=== PATIENT | female | born 1970 ===

== ENCOUNTER 2017-04-25 15:30 | Observation (INO) | payer SELFPAY ==
[2017-04-25 17:02] LABS: BASO # 0.1 K/uL (0.0-0.2); BASO % 0.5 % (0.0-2.0); EOS # 0.3 K/uL (0.0-0.7); EOS % 2.9 % (0.0-4.0); HEMATOCRIT 43.6 % (34.0-47.0); LYMPH # 3.6 K/uL (1.0-4.3); LYMPH % 32.7 % (20.0-40.0); MEAN CELL VOLUME 86.8 fl (81.0-99.0); MEAN CORPUSCULAR HEMOGLOBIN 28.3 pg (27.0-31.0); MEAN CORPUSCULAR HGB CONC 32.6 g/dL (33.0-37.0); MEAN PLATELET VOLUME 10.1 fl (7.2-11.7); MONO # 0.6 K/uL (0.0-0.8); MONO % 5.2 % (0.0-10.0); NEUT # 6.5 K/uL (1.8-7.0); NEUT % 58.7 % (50.0-75.0); NRBC % 0.1 % (0.0-0.0); RED CELL DISTRIBUTION WIDTH 13.7 % (11.5-14.5); WHITE BLOOD COUNT 11.1 K/uL (4.8-10.8)
[2017-04-25 17:14] LABS: ALB/GLOB RATIO 1.1 (1.0-2.1); ALKALINE PHOSPHATASE 88 U/L (38-126); ALT/SGPT 26 U/L (9-52); AST/SGOT 43 U/L (14-36); BILIRUBIN,TOTAL 0.8 mg/dl (0.2-1.3); BLOOD UREA NITROGEN 8 mg/dl (7-17); CALCIUM 9.4 mg/dL (8.4-10.2); CARBON DIOXIDE 24 mmol/L (22-30); CHLORIDE 100 mmol/L (98-107); GFR AFRICAN-AMERICAN > 60; GLUCOSE,RANDOM 217 mg/dL (65-105); POTASSIUM 4.3 MMOL/L (3.6-5.0); SODIUM 137 mmol/l (132-148); TOTAL PROTEIN 8.6 G/DL (6.3-8.2)
--- NOTE | 2017-04-25 17:24 | ED PDOC ---
HPI: SOB/CHF/COPD Time Seen by Provider: 04/25/17 16:00 Chief Complaint (Nursing): Shortness Of Breath Chief Complaint (Provider): Shortness of Breath History Per: Patient History/Exam Limitations: no limitations Onset/Duration Of Symptoms: Days (5) Exacerbating Factor(s): Exertion, Laying Flat Current Respiratory Medications: See Home Med List Severity: Severe Associated Symptoms: Other (persistent non-productive cough and dyspnea) Additional Complaint(s): 46 y.o. female with PMHx of Type II Diabetes Mellitus, HTN, Hyperlipidemia presents to emergency room with complaints of shortness of breath. Pt. reports starting approximately 5 days ago started experiencing a non-productive cough and then starting Monday developed shortness of breath. Pt. reports has not felt short of breath prior to this episode and non-productive cough as not improved. Pt. reports was with her PMD and was sent from the E.D. via ambulance to the E.D. for evaluation of shortness of breath. Further more patient reports her breathing improves when sitting upright and feels more short of breath when lying supine. Pt. also reports fatigue and generalized weakness. On ROS, pt. denies any fever, chills, nasal congestion, recent travel, hemoptysis, hematemesis, abdominal pain, joint pain, dysuria, hematuria, or limb pain. Past Medical History Vital Signs: Last Vital Signs Temp 98.3 F 04/25/17 15:33 Pulse 100 H 04/25/17 15:33 Resp 16 04/25/17 16:20 BP 144/79 04/25/17 15:33 Pulse Ox 100 04/25/17 19:16 - Medical History PMH: Diabetes, GERD, Hypercholesterolemia, Hyperlipidemia - Family History Family History: States: Unknown Family Hx - Social History Current smoker - smoking cessation education provided: No Ex-Smoker (has not smoked in the last 12 months): No Alcohol: None Drugs: Denies - Home Medications Home Medications: Ambulatory Orders Medication Instructions Recorded Naproxen [Naprosyn] 500 mg PO BID PRN #15 tablet 05/09/16 - Allergies Allergies/Adverse Reactions: Allergies Allergy/AdvReac Type Severity Reaction Status Date / Time No Known Allergies Allergy Verified 05/09/16 10:21 Curb-65 Severity Score - CURB-65 Severity Score Confusion: No Bun >19mg/dl (>7mmol/L): No Respiratory Rate greater than/equal to 30: No Systolic BP <90 or Diastolic BP less than/equal 60mmHg: No Age >64: No Curb-65 Score: 0 Percentage 30-day mortality: 0.6% Wells Criteria for PE - Wells Criteria for Pulmonary Embolism Clinical Signs and Symptoms of DVT: No P.E is #1 Diagnosis, or Equally Likely: No Heart Rate >100: Yes Immobilization at least 3 days;Surgery previous 4 weeks: No Previous, objectively diagnosed PE or DVT: No Hemoptysis: No Malignancy w/treatment within 6 months, or palliative: No Total Score: 1.5 Review of Systems Respiratory: Positive for: Cough (See HPI), Shortness of Breath Physical Exam - Reviewed Vital Signs Reviewed: Yes - Physical Exam Appears: Positive for: Non-toxic, No Acute Distress Eye Exam: Positive for: Normal appearance. Negative for: Scleral icterus ENT: Positive for: Pharynx Is (+Posterior nasal drip ) Neck: Positive for: Painless ROM Respiratory: Positive for: Rhonchi (Scattered rhonchi appreciated greater on right than left). Negative for: Wheezing Gastrointestinal/Abdominal: Positive for: Soft. Negative for: Tenderness Extremity: Positive for: Other (Trace pitting edema) Neurologic/Psych: Positive for: Alert, Oriented - Laboratory Results Result Diagrams: 04/25/17 16:48 04/25/17 16:48 - ECG O2 Sat by Pulse Oximetry: 100 - Radiology X-Ray: Read By Radiologist X-Ray Interpretation: No Acute Disease - Progress ED Course And Treament: CBC, CMP, Troponin, D-dimer, UA CXR Oxygen 2L NC EKG Re-evaluation Time: 19:15 Condition: Improving,but remains with symptoms Medical Decision Making Medical Decision Makin y.o. female with HTN, HLD, Diabetes Mellitus sent from clinic with new onset cough and shortness of breath seen in the emergency room with new onset dyspnea still with symptoms while in the E.D. with an elevated D. Dimer of .71. for CT angio PE protocol. Disposition - Clinical Impression Clinical Impression: Dyspnea - Patient ED Disposition Is Patient to be Admitted: Yes Discussed With : Peg Lee - Disposition Disposition Time: 19:20 Condition: GUARDED
--- NOTE | 2017-04-25 17:37 | RAD ---
HISTORY: dyspnea COMPARISON: No prior. FINDINGS: LUNGS: No active pulmonary disease. PLEURA: No significant pleural effusion identified, no pneumothorax apparent. CARDIOVASCULAR: No radiographic findings to suggest acute or significant cardiovascular disease. OSSEOUS STRUCTURES: No significant abnormalities. VISUALIZED UPPER ABDOMEN: Normal. OTHER FINDINGS: None. IMPRESSION: No active disease.
[2017-04-25 19:06] LABS: PARTIAL THROMBOPLASTIN TIME 24.4 Seconds (25.6-37.1)
[2017-04-25 19:08] LABS: RBC URINE 4 /hpf (0-3); URINE BILIRUBIN NEGATIVE (NEGATIVE); URINE BLOOD NEGATIVE (NEGATIVE); URINE COLOR YELLOW (YELLOW); URINE GLUCOSE (UA) 150 mg/dL (Normal); URINE KETONE TRACE mg/dL (NEGATIVE); URINE LEUKOCYTE ESTERASE NEG Leu/uL (Negative); URINE PROTEIN 100 mg/dL (NEGATIVE); URINE UROBILINOGEN 0.2-1.0 mg/dL (0.2-1.0); WBC URINE 1 /hpf (0-5)
[2017-04-25] MEDS ORDERED: Iodixanol 320 MG/ML 100 ML BOTTLE IV ONE (19:20)
[2017-04-25] MEDS ORDERED: Sodium Chloride 0.9% 50 ML IV ONE (19:20)
--- NOTE | 2017-04-25 20:57 | CP.PCM.HP ---
History of Present Illness - History of Present Illness History of Present Illness: CC: Dyspnea on walking that is "new" 46F referred from [facility] for new onset dyspnea since Monday on exertion after development of dry cough on Saturday 04/21. Patient denies asthma history and has never smoked. Cough started Monday, worse at night, house member with similar symptoms, and smoking by a house member. Of note, patient reports baseline fatigue and needing rest frequently throughout the day. -ve: fevers, chills, sore throat, ear pain, SOB at rest, chest pain, palpitations, peripheral swelling, orthopnea, recent travel, weight loss, loss of appetite In addition, patient is experiencing significant reflux symptoms with burning into her throat, especially at night and reports associated bad taste in her mouth in the morning. She states she intermittently takes ant-acids. She reports burning and frequency with urination. LMP: 03/28/2017 PMH: DM, HLD, GERD PSH: None Smoke: Never, but lives with smoker Alcohol: Socially Drugs: Denies ALL: Eggs NIA: See Med Rec ED COURSE VSS: 36.8- 100- 144/79- 22- 100% CBC: 11.1H>14.2/43.6<326, otherwise nml Influenza: Neg Rapid Strep: Neg Throat Culture: PEND CMP: AST- 43H, otherwise WNL EKG: SR, HR-95, no ST-T changes Troponin#1: Negative D-dimer: 0.7H CXR: no active disease CTA Chest: no PE, dissection Aspirin 325mg x1 Present on Admission - Present on Admission Any Indicators Present on Admission: Yes History of Uncontrolled Diabetes: Yes Review of Systems - Review of Systems All systems: reviewed and no additional remarkable complaints except - Respiratory Respiratory: Cough, Dyspnea on Exertion Past Patient History - Past Social History Alcohol: None Drugs: Denies - CARDIAC Hx Hypercholesterolemia: Yes - ENDOCRINE/METABOLIC Hx Diabetes Mellitus Type 2: Yes - PSYCHIATRIC Hx Substance Use: No - ANESTHESIA Hx Anesthesia: No Meds Allergies/Adverse Reactions: Allergies Allergy/AdvReac Type Severity Reaction Status Date / Time No Known Allergies Allergy Verified 05/09/16 10:21 Physical Exam - Constitutional Appears: Well, Non-toxic, No Acute Distress - Head Exam Head Exam: ATRAUMATIC, NORMAL INSPECTION - Eye Exam Eye Exam: EOMI, Normal appearance - ENT Exam ENT Exam: Mucous Membranes Moist, Normal Exam - Neck Exam Neck exam: Positive for: Full Rom, Normal Inspection. Negative for: Lymphadenopathy - Respiratory Exam Respiratory Exam: Clear to Auscultation Bilateral, NORMAL BREATHING PATTERN. absent: Rales, Wheezes - Cardiovascular Exam Cardiovascular Exam: REGULAR RHYTHM. absent: JVD - GI/Abdominal Exam GI & Abdominal Exam: Normal Bowel Sounds, Soft. absent: Tenderness - Extremities Exam Extremities exam: Positive for: normal capillary refill, pedal pulses present. Negative for: normal inspection (b/l varicosty w/o cords or phlebitis), pedal edema - Back Exam Back exam: absent: CVA tenderness (L), CVA tenderness (R) - Neurological Exam Neurological exam: Alert, Oriented x3 - Psychiatric Exam Psychiatric exam: Normal Affect, Normal Mood - Skin Skin Exam: Normal Color, Warm Results - Vital Signs Recent Vital Signs: Last Vital Signs Temp 36.8 C 04/25/17 15:33 Pulse 114 H 04/25/17 20:26 Resp 18 04/25/17 20:26 BP 126/78 04/25/17 20:26 Pulse Ox 98 04/25/17 20:26 - Labs Result Diagrams: 04/25/17 16:48 04/25/17 16:48 Assessment & Plan (1) Dyspnea Assessment and Plan: Likely secondary to a viral URI with + sick contact combined with poorly controlled moderate GERD, and body habitus. Clinically no evidence for HF, Asthma, COPD. Although d-dimer mildly elevated, CTA chest negative for acute pathology and likely non-specific. Ddx viral URI vs. uncontrolled GERD. - Throat Cx: PEND - Complete Troponin series - Protonix 40mg, PO, Daily - Encourage lifestyle changes for GERD Status: Acute (2) DVT prophylaxis Assessment and Plan: Lovenox 40mg, SC, HS Status: Acute (3) Diabetes Assessment and Plan: Chronic, not well-controlled. Patient taking medication on her own schedule and instructed to take medication as prescribed for maximal effect. A1C- 12.6 () - Resume Metformin, Glipizide, Atorvastatin - SSI, moderate ACTID - Levemir 10U, SC, HS (TDD: 20.4 0.3*68kg) - Accu-check ACHS - Hypoglycemic Bindle - Mod CHO diet Status: Chronic (4) Chronic GERD Assessment and Plan: Patient with significant symptoms and inconsistent medication schedule. - Started on Protonix 40mg, PO, Daily Status: Chronic
[2017-04-25] MEDS ORDERED: Glucagon Recombinant 1 mg Inj IM PRN (21:03)
[2017-04-25] MEDS ORDERED: Dextrose 50% SYRINGE Inj (50 ml) IV PRN (21:03)
--- NOTE | 2017-04-25 21:03 | CT ---
EXAM: CT Angiography Chest With Intravenous Contrast CLINICAL HISTORY: 46 years old, female; Signs and symptoms; Shortness of breath; Additional info: New onset dyspnea on exertion TECHNIQUE: Axial computed tomographic angiography images of the chest with intravenous contrast using pulmonary embolism protocol. This CT exam was performed using one or more of the following dose reduction techniques: automated exposure control, adjustment of the mA and/or kV according to patient size, and/or use of iterative reconstruction technique. MIP reconstructed images were created and reviewed. Coronal and sagittal reformatted images were created and reviewed. CONTRAST: 80 mL of [id number] administered intravenously. COMPARISON: No relevant prior studies available. FINDINGS: Pulmonary arteries: No pulmonary embolism. Aorta: No aneurysm. No dissection. Lungs: Mild underinflation. Mild mosaic pattern of lung parenchyma, nonspecific but likely air trapping. Minimal atelectasis/scarring. No consolidation. Few pulmonary nodules, up to 0.3 cm. Pleural space: No significant effusion. No pneumothorax. Heart: No cardiomegaly. No significant pericardial effusion. Bones/joints: No acute fracture. No dislocation. Soft tissues: Unremarkable. Lymph nodes: No pathologically enlarged lymph nodes. Liver: Probable fatty infiltration. IMPRESSION: 1. No CT evidence of pulmonary embolism. 2. Pulmonary nodules. For low-risk patients, no follow-up is necessary. For high-risk patients (smoking history or other known risk factors) recommend CT at 12 months and if unchanged, no further follow-up. 3. Incidental/non-acute findings are described above.
[2017-04-25] MEDS ORDERED: Enoxaparin 40 mg Syringe SC SCH (22:00)
[2017-04-25] MEDS ORDERED: Insulin Detemir 100 Units/ml Inj SC SCH (22:00)
[2017-04-26 05:26] LABS: BASO % 0.3 % (0.0-2.0); EOS # 0.4 K/uL (0.0-0.7); EOS % 3.8 % (0.0-4.0); HEMATOCRIT 42.9 % (34.0-47.0); LYMPH # 4.7 K/uL (1.0-4.3); LYMPH % 42.3 % (20.0-40.0); MEAN CELL VOLUME 86.2 fl (81.0-99.0); MEAN CORPUSCULAR HEMOGLOBIN 28.4 pg (27.0-31.0); MEAN CORPUSCULAR HGB CONC 32.9 g/dL (33.0-37.0); MEAN PLATELET VOLUME 9.6 fl (7.2-11.7); MONO # 0.7 K/uL (0.0-0.8); MONO % 6.1 % (0.0-10.0); NEUT # 5.2 K/uL (1.8-7.0); NEUT % 47.5 % (50.0-75.0); NRBC % 0.1 % (0.0-0.0); RED CELL DISTRIBUTION WIDTH 13.8 % (11.5-14.5)
[2017-04-26 05:32] LABS: BLOOD UREA NITROGEN 11 mg/dl (7-17); CALCIUM 9.7 mg/dL (8.4-10.2); CARBON DIOXIDE 26 mmol/L (22-30); CHLORIDE 100 mmol/L (98-107); GFR AFRICAN-AMERICAN > 60; GLUCOSE,RANDOM 243 mg/dL (65-105); SODIUM 139 mmol/l (132-148)
[2017-04-26] MEDS ORDERED: Insulin Lispro (humaLOG) 100 Units/ml Inj SC SCH (07:30)
--- NOTE | 2017-04-26 08:51 | CARD ---
APPROVED REPORT EKG Measurement Heart [id number] MS [id number] <Conclusion> Normal sinus rhythm Inferior infarct, age undetermined Abnormal ECG
[2017-04-26] MEDS ORDERED: GlipiZIDE 10 mg SR Tab PO SCH (09:00)
[2017-04-26] MEDS ORDERED: Enoxaparin 40 mg Syringe SC SCH (09:00)
[2017-04-26] MEDS ORDERED: Pantoprazole 40 mg EC Tab PO SCH (09:00)
[2017-04-26 12:42] VITALS: BP 100/61; PULSE 87; RESP 18; TEMP 97.7; O2SAT 97
--- NOTE | 2017-04-26 14:40 | CP.PCM.DIS ---
Provider - Provider Date of Admission: 04/25/17 19:24 Attending physician: Johanne Ansari MD Time Spent in preparation of Discharge (in minutes): 35 Hospital Course - Lab Results Lab Results: Most Recent Lab Values WBC 11.0 K/uL (4.8-10.8) H 04/26/17 04:10 RBC 4.97 Mil/uL (3.80-5.20) 04/26/17 04:10 Hgb 14.1 g/dL (12.0-16.0) 04/26/17 04:10 Hct 42.9 % (34.0-47.0) 04/26/17 04:10 MCV 86.2 fl (81.0-99.0) 04/26/17 04:10 MCH 28.4 pg (27.0-31.0) 04/26/17 04:10 MCHC 32.9 g/dL (33.0-37.0) L 04/26/17 04:10 RDW 13.8 % (11.5-14.5) 04/26/17 04:10 Plt Count 316 K/uL (130-400) 04/26/17 04:10 MPV 9.6 fl (7.2-11.7) 04/26/17 04:10 Neut % (Auto) 47.5 % (50.0-75.0) L 04/26/17 04:10 Lymph % (Auto) 42.3 % (20.0-40.0) H 04/26/17 04:10 [place] % (Auto) 6.1 % (0.0-10.0) 04/26/17 04:10 Eos % (Auto) 3.8 % (0.0-4.0) 04/26/17 04:10 Baso % (Auto) 0.3 % (0.0-2.0) 04/26/17 04:10 Neut # 5.2 K/uL (1.8-7.0) 04/26/17 04:10 Lymph # 4.7 K/uL (1.0-4.3) H 04/26/17 04:10 [place] # 0.7 K/uL (0.0-0.8) 04/26/17 04:10 Eos # 0.4 K/uL (0.0-0.7) 04/26/17 04:10 Baso # 0.0 K/uL (0.0-0.2) 04/26/17 04:10 PT 10.7 Seconds (9.8-13.1) 04/25/17 18:00 INR 1.0 (0.9-1.2) 04/25/17 18:00 APTT 24.4 Seconds (25.6-37.1) L 04/25/17 18:00 D-Dimer, Quantitative 0.71 mg/L FEU (0-0.50) H 04/25/17 18:00 Sodium 139 mmol/l (132-148) 04/26/17 04:10 Potassium 4.0 MMOL/L (3.6-5.0) 04/26/17 04:10 Chloride 100 mmol/L (98-107) 04/26/17 04:10 Carbon Dioxide 26 mmol/L (22-30) 04/26/17 04:10 Anion Gap 16 (10-20) 04/26/17 04:10 BUN 11 mg/dl (7-17) 04/26/17 04:10 Creatinine 0.5 mg/dL (0.7-1.2) L 04/26/17 04:10 Est GFR ( Amer) > 60 04/26/17 04:10 Est GFR (Non-Af Amer) > 60 04/26/17 04:10 POC Glucose (mg/dL) 243 mg/dL (65-110) H 04/26/17 11:59 Random Glucose 243 mg/dL (65-105) H 04/26/17 04:10 Calcium 9.7 mg/dL (8.4-10.2) 04/26/17 04:10 Total Bilirubin 0.8 mg/dl (0.2-1.3) 04/25/17 16:48 AST 43 U/L (14-36) H D 04/25/17 16:48 ALT 26 U/L (9-52) 04/25/17 16:48 Alkaline Phosphatase 88 U/L (38-126) 04/25/17 16:48 Troponin I 0.0160 ng/mL (0.00-0.120) 04/26/17 09:34 NT-Pro-B Natriuret Pep 52.9 pg/ml (0-450) 04/25/17 16:48 Total Protein 8.6 G/DL (6.3-8.2) H 04/25/17 16:48 Albumin 4.5 g/dL (3.5-5.0) 04/25/17 16:48 Globulin 4.2 gm/dL (2.2-3.9) H 04/25/17 16:48 Albumin/Globulin Ratio 1.1 (1.0-2.1) 04/25/17 16:48 Urine Color Yellow (YELLOW) 04/25/17 18:39 Urine Clarity Clear (Clear) 04/25/17 18:39 Urine pH 5.0 (5.0-8.0) 04/25/17 18:39 Ur Specific [place] 1.032 (1.003-1.030) H 04/25/17 18:39 Urine Protein 100 mg/dL (NEGATIVE) 04/25/17 18:39 Urine Glucose (UA) 150 mg/dL (Normal) 04/25/17 18:39 Urine Ketones Trace mg/dL (NEGATIVE) 04/25/17 18:39 Urine Blood Negative (NEGATIVE) 04/25/17 18:39 Urine Nitrate Negative (NEGATIVE) 04/25/17 18:39 Urine Bilirubin Negative (NEGATIVE) 04/25/17 18:39 Urine Urobilinogen 0.2-1.0 mg/dL (0.2-1.0) 04/25/17 18:39 Ur Leukocyte Esterase Neg Elliot/uL (Negative) 04/25/17 18:39 Urine RBC (Auto) 4 /hpf (0-3) H 04/25/17 18:39 Urine Microscopic WBC 1 /hpf (0-5) 04/25/17 18:39 Ur Squamous Epith Cells 5 /hpf (0-5) 04/25/17 18:39 Influenza Typ A,B (EIA) Negative for flu a/b (NEGATIVE) 04/25/17 18:20 Grp A Beta Strep Ag Negative (NEGATIVE) 04/25/17 18:20 - Hospital Course Hospital Course: 46 year old female with uncontrolled DM presented to [facility] [place] with complaints of dyspnea on exertion, admitted for observation to rule out PE and acute [place]. EKG: NSR, inferior infarct, age undetermined. Troponins negative x 2. Patient had CTA Chest : no evidence of PE or dissection. Patient has symptoms of GERD. Will treat with omeprazole 20mg daily. She Will follow up at [facility] on May 04, 2017 at 15:[address] Gutiérrez. Patient to get echo and is stable for discharge s/p echo. - Date & Time of H&P Date of H&P: 04/25/17 Time of H&P: 20:57 Discharge Exam - Head Exam Head Exam: ATRAUMATIC, NORMAL INSPECTION - Eye Exam Eye Exam: Normal appearance - ENT Exam ENT Exam: Mucous Membranes Moist - Respiratory Exam Respiratory Exam: Clear to PA & Lateral, NORMAL BREATHING PATTERN, UNREMARKABLE - Cardiovascular Exam Cardiovascular Exam: REGULAR RHYTHM, +S1, +S2 - GI/Abdominal Exam GI & Abdominal Exam: Normal Bowel Sounds, Soft. absent: Tenderness - Extremities Exam Additional comments: no pedal edema - Neurological Exam Neurological exam: Alert, CN II-XII Intact - Psychiatric Exam Psychiatric exam: Normal Affect, Normal Mood - Skin Skin Exam: Dry, Intact, Normal Color Discharge Plan - Discharge Medications Prescriptions: Omeprazole 20 mg PO DAILY #30 tablet. - Follow Up Plan Condition: GUARDED Disposition: HOME/ ROUTINE
--- NOTE | 2017-04-28 09:27 | CARD ---
APPROVED REPORT EKG Measurement Heart [id number] MS 150P47 [id number] <Conclusion> Normal sinus rhythm Possible Inferior infarct, age undetermined Cannot rule out Anterior infarct, age undetermined Abnormal ECG
--- NOTE | 2017-04-28 10:55 | CARD ---
APPROVED REPORT EXAM: Two-dimensional and M-mode echocardiogram with Doppler and color Doppler. Other Information Quality : FairRhythm : INDICATION Dyspnea 2D DIMENSIONS IVSd1.11 (0.7-1.1cm)LVDd3.61 (3.9-5.9cm) PWd1.06 (0.7-1.1cm)IVSs1.65 (0.8-1.2cm) LVDs2.09 (2.5-4.0cm)FS (%) 42.0 % PWs1.47 (0.8-1.2cm) M-Mode DIMENSIONS Left Atrium (MM)3.70 (2.5-4.0cm)Aortic Root2.70 (2.2-3.7cm) Aortic Cusp Exc.1.90 (1.5-2.0cm) Aortic Valve AoV Peak Ovrkhwlf744.5cm/sAoV VTI19.4cmAO Peak GR.5mmHg LVOT Peak Dlnuzakp18.3cm/sLVOT VTI16.18cmAO Mean GR.3mmHg Mitral Valve MV E Yjeiqjya79.7cm/sMV DECEL QWVQ44pwWA A Gcpwkzap10.9cm/s MV ZQK83foO/A ratio0.4MVA (PHT)18.31cm2 TDI Lateral E' Peak V7.99cm/sMedial E' Peak V10.59cm/sE/Lateral E'3.3 E/Medial E'2.5 Pulmonary Valve PV Peak Fxuqjcvv195.5cm/s Tricuspid Valve TR Peak Lvwsdkhv539il/sRAP QLMAITZY24hfEsWK Peak Gr.6mmHg XTRZ60agFq LEFT VENTRICLE The left ventricle is normal size. There is normal left ventricular wall thickness. The left ventricular function is normal. The left ventricular ejection fraction is within the normal range. The Ejection Fraction is 65-70%. There is normal LV segmental wall motion. The left ventricular diastolic function is normal. No left ventricle thrombus noted on this study. There is no mass noted in the left ventricle. RIGHT VENTRICLE The right ventricle is normal size. There is normal right ventricular wall thickness. The right ventricular systolic function is normal. ATRIA The left atrium size is normal. The right atrium size is normal. The interatrial septum is intact with no evidence for an atrial septal defect. AORTIC VALVE The aortic valve is normal in structure and function. No aortic regurgitation is present. There is no aortic valvular stenosis. There is no aortic valvular vegetation. MITRAL VALVE The mitral valve is normal in structure and function. There is no evidence of mitral valve prolapse. There is no mitral valve stenosis. There is no mitral valve regurgitation noted. TRICUSPID VALVE The tricuspid valve is normal in structure and function. There is no tricuspid valve regurgitation noted. There is no tricuspid valve prolapse or vegetation. There is no tricuspid valve stenosis. PULMONIC VALVE The pulmonary valve is normal in structure and function. There is no pulmonic valvular regurgitation. There is no pulmonic valvular stenosis. GREAT VESSELS The aortic root is normal in size. The IVC is normal in size and collapses >50% with inspiration. PERICARDIAL EFFUSION The pericardium appears normal. There is no pleural effusion. <Conclusion> The left ventricle is normal size. The left ventricular function is normal. The left ventricular ejection fraction is within the normal range. The Ejection Fraction is 65-70%.
== END 2017-04-26 16:22 | disposition home or self-care (01) ==
LOC: H.ER 15:30 → H.ERHOLD 19:24 → H.TEL 22:28
PROVIDERS: ADMIT Family Medicine Geriatric Medicine; ATTEND Family Medicine Geriatric Medicine
DX: K21.9 Gastro-esophageal reflux disease without esophagitis (principal); E11.65 Type 2 diabetes mellitus with hyperglycemia; E78.00 Pure hypercholesterolemia, unspecified; E78.5 Hyperlipidemia, unspecified; I10 Essential (primary) hypertension; R35.0 Frequency of micturition; J44.9 Chronic obstructive pulmonary disease, unspecified; Z77.22 Contact with and (suspected) exposure to environmental tobacco smoke (acute) (chronic); Z87.891 Personal history of nicotine dependence

== ENCOUNTER 2017-08-23 18:41 | Emergency (ER) | payer OTHER ==
[2017-08-23 19:08] VITALS: BP 144/82; PULSE 95; RESP 16; TEMP 98.8; O2SAT 98
--- NOTE | 2017-08-23 19:19 | ED PDOC ---
Upper Extremity Pain/Injury Time Seen by Provider: 08/23/17 18:46 Chief Complaint (Nursing): Finger,Hand,&Wrist Chief Complaint (Provider): Left thumb pain History Per: Patient History/Exam Limitations: no limitations Onset/Duration Of Symptoms: Hrs Current Symptoms Are (Timing): Still Present Additional Complaint(s): Patient is a 47 y/o female with a past medical history of diabetes presenting to the emergency department for left thumb pain and swelling ongoing for three days. Notes taking Advil and soaking thumb in cold water but reports no significant relief of symptoms. Denies pain elsewhere or other complaints. PCP: none provided. Past Medical History Reviewed: Historical Data, Nursing Documentation, Vital Signs Vital Signs: Last Vital Signs Temp 98.8 F 08/23/17 19:05 Pulse 95 H 08/23/17 19:05 Resp 16 08/23/17 19:05 BP 144/82 08/23/17 19:05 Pulse Ox 98 08/23/17 19:05 - Medical History PMH: Diabetes, GERD, Hypercholesterolemia, Hyperlipidemia - Surgical History Surgical History: No Surg Hx - Family History Family History: States: Unknown Family Hx - Social History Current smoker - smoking cessation education provided: No Ex-Smoker (has not smoked in the last 12 months): No Alcohol: None Drugs: Denies - Home Medications Home Medications: Ambulatory Orders Medication Instructions Recorded Atorvastatin [Lipitor] 20 mg PO DAILY 04/25/17 GlipiZIDE SR [Glucotrol XL] 10 mg PO DAILY 04/25/17 metFORMIN [glucOPHAGE] 1,000 mg PO BID 04/25/17 Omeprazole 20 mg PO DAILY #30 tablet. 04/26/17 Cephalexin [Keflex] 500 mg PO BID #14 capsule 08/23/17 - Allergies Allergies/Adverse Reactions: Allergies Allergy/AdvReac Type Severity Reaction Status Date / Time No Known Allergies Allergy Verified 08/23/17 19:05 Review of Systems ROS Statement: Except As Marked, All Systems Reviewed And Found Negative Musculoskeletal: Positive for: Hand Pain (Left thumb pain and swelling) Physical Exam - Reviewed Vital Signs Reviewed: Yes - Physical Exam Appears: Positive for: Well, Non-toxic, No Acute Distress Head Exam: Positive for: ATRAUMATIC Skin: Positive for: Normal Color, Warm, Dry Eye Exam: Positive for: Normal appearance ENT: Positive for: Normal ENT Inspection Neck: Positive for: Normal Respiratory: Negative for: Respiratory Distress Extremity: Positive for: Normal ROM, Other (tenderness of left thumb nail fold with edema and no discrete abscess) Neurologic/Psych: Positive for: Alert, Oriented (x3) - ECG O2 Sat by Pulse Oximetry: 98 (RA) Pulse Ox Interpretation: Normal Medical Decision Making Medical Decision Making: Time: 19:00 Initial impression: Left thumb pain Initial plan: Antibiotic treatment Patient was counseled to soak left thumb in hot salt water to relieve pain. Scribe Attestation: Documented by Reba Johnson, acting as a scribe for EMILY Spann. Provider Scribe Attestation: All medical record entries made by the Scribe were at my direction and personally dictated by me. I have reviewed the chart and agree that the record accurately reflects my personal performance of the history, physical exam, medical decision making, and the department course for this patient. I have also personally directed, reviewed, and agree with the discharge instructions and disposition. Disposition - Clinical Impression Clinical Impression: Paronychia - Patient ED Disposition Is Patient to be Admitted: No Counseled Patient/Family Regarding: Rx Given - Disposition Referrals: [facility] [Outside] Disposition: Routine/Home Disposition Time: 19:17 Condition: STABLE Additional Instructions: Warm compresses or soaks several times a day. Prescriptions: Cephalexin [Keflex] 500 mg PO BID #14 capsule Instructions: Paronychia (ED) Forms: [employer] (Persian) Print Language: PANAMANIAN
== END 2017-08-23 19:38 | disposition home or self-care (01) ==
LOC: H.ER 18:41
DX: L03.012 Cellulitis of left finger (principal)